=== PATIENT | male | born 1960 | race Caucasian/White ===

== ENCOUNTER 2025-02-06 08:41 | Outpatient (CLI) | payer OTHER, SELFPAY | END 2025-02-06 08:42 | disposition home or self-care (01) | LOC: NFLDREF 02-07 07:15 | PROVIDERS: PCP Family Medicine; Referring Provider Family Medicine; Visit Provider Family Medicine | DX: E78.5 Hyperlipidemia, unspecified (principal); D64.9 Anemia, unspecified; R53.83 Other fatigue; Z12.5 Encounter for screening for malignant neoplasm of prostate | CPT/HCPCS: 80053; 80061; 84443; G0103 ==

== ENCOUNTER 2025-02-19 13:32 | Outpatient (CLI) | payer OTHER, SELFPAY ==
--- NOTE | 2025-02-19 14:21 | P.STN_ITS ---
Stress Test Note Date Date Seen: 02/19/25 Date of test: 02/19/25 Providers Primary care provider: Bg Benjamin Stress test physician: Nicole Morris Stress Test Note Stress test ordered: Exercise Stress Test Indication for test: Dyspnea on exertion Stress test medicine: None Results discussion: Resting EKG: Sinus rhythm, 81 beats per minute. Inferior ST segment depression in 2, 3, AVF. Resting blood pressure: 120/80 Stress test: Patient is consented on treadmill exercise stress test and agrees to proceed, it is reported to me that insurance is only covering this stress test. Standard [place] protocol is followed. Patient was able to exercise 10 minutes 16 seconds following standard [place] protocol on the treadmill, needing to stop due to dyspnea on exertion. He felt if he went any further he would get lightheaded. This was equivalent to 11.9 Mets. He had a maximum heart rate of 150 beats per minute which was 112% of a calculated target heart rate of 133. He had a maximal systolic blood pressure of 162/100, giving a rate pressure product of 24,300. Patient had no chest pain, no arrhythmia. There was some deepening of the ST depression with exercise, resolving in recovery. Did listen to his lungs as he was quite dyspneic at the termination of exercise. He had somewhat distant breath sounds but no wheezing, prolonged expiratory phase. His breathing improved during recovery as well. Impression: Subjectively positive for dyspnea with exertion but no chest pain, baseline EKG changes does make this indeterminate without imaging modality to couple this. Follow up suggested: IA do recommend that this patient have further evaluation if there is significant concern. Potentially referral to Cardiology and consideration for CT angiogram verses stress testing with an imaging modality be considered. Ultimately Cardiology referral might be beneficial as this patient does have significant risk factors. Do also think that pulmonary disease should be cons idered if it has not. Pulmonary function testing for screening purposes for lung disease could be considered if felt clinically appropriate. Ultimately defer to patient's primary care provider. Patient is discharged in stable condition.
[2025-02-19 14:23] VITALS: BP 128/74; PULSE 91; RESP 16
== END 2025-02-19 13:33 | disposition home or self-care (01) ==
LOC: STRESS 13:34
PROVIDERS: PCP Family Medicine; Visit Provider Family Medicine
DX: R06.09 Other forms of dyspnea (principal); E78.5 Hyperlipidemia, unspecified
CPT/HCPCS: 93016; 93017

== ENCOUNTER 2025-02-26 12:49 | Outpatient (CLI) | payer OTHER, SELFPAY ==
--- NOTE | 2025-02-26 14:31 | P.ANES_ITS ---
Anesthesia Charges Start Date/Time Anesthesia Start Date: 02/26/25 Anesthesia Start Time: 13:54 Stop Date/Time Anesthesia Stop Date: 02/26/25 Anesthesia Stop Time: 14:28 Coding CPT Codes CPT Codes: [facility] LWR INTST NDSC NOS - [id number] ([id number]) P2 - PATIENT W/MILD SYST DISEASE, QK - MALT ROASTER 2-4 CNCRNT ANES PROC, QX - COBBLER APPRENTICE SVC W/ MD MED DIRECTION
--- NOTE | 2025-02-26 14:31 | W.ANESCHARGE ---
Anesthesia Charges Start Date/Time Anesthesia Start Date: 02/26/25 Anesthesia Start Time: 13:54 Stop Date/Time Anesthesia Stop Date: 02/26/25 Anesthesia Stop Time: 14:28 Coding CPT Codes CPT Codes: [facility] LWR INTST NDSC NOS - [id number] ([id number]) P2 - PATIENT W/MILD SYST DISEASE, QK - SOFTWARE WRITER 2-4 CNCRNT ANES PROC, QX - ENGINE INSTALLER SVC W/ MD MED DIRECTION
--- NOTE | 2025-02-26 14:36 | P.ANES_ITS ---
Anesthesia Charges Start Date/Time Anesthesia Start Date: 02/26/25 Anesthesia Start Time: 13:54 Stop Date/Time Anesthesia Stop Date: 02/26/25 Anesthesia Stop Time: 14:28 Coding CPT Codes CPT Codes: [facility] LWR INTST NDSC NOS - [id number] ([id number]) P2 - PATIENT W/MILD SYST DISEASE, QK - HORSESHOER 2-4 CNCRNT ANES PROC, QX - ENERGY ATTORNEY SVC W/ MD MED DIRECTION
--- NOTE | 2025-02-26 14:36 | W.ANESCHARGE ---
Anesthesia Charges Start Date/Time Anesthesia Start Date: 02/26/25 Anesthesia Start Time: 13:54 Stop Date/Time Anesthesia Stop Date: 02/26/25 Anesthesia Stop Time: 14:28 Coding CPT Codes CPT Codes: [facility] LWR INTST NDSC NOS - [id number] ([id number]) P2 - PATIENT W/MILD SYST DISEASE, QK - MOLECULAR BIOLOGY PROFESSOR 2-4 CNCRNT ANES PROC, QX - DIAMOND ASSORTER SVC W/ MD MED DIRECTION
== END 2025-02-26 12:50 | disposition home or self-care (01) ==
LOC: OP CLINIC 12:50
PROVIDERS: PCP Family Medicine; Visit Provider Surgery
DX: Z12.11 Encounter for screening for malignant neoplasm of colon (principal); D12.2 Benign neoplasm of ascending colon; D12.4 Benign neoplasm of descending colon; D12.5 Benign neoplasm of sigmoid colon
CPT/HCPCS: 00811; 45385; 88305; J2704